=== PATIENT | male | born 1990 | race American Indian/Alaskan Native ===

== ENCOUNTER 2016-09-19 01:30 | Emergency (ER) | payer SELFPAY ==
[2016-09-19] MEDS ORDERED: ZOFRAN IV ONE (01:48)
[2016-09-19] MEDS ORDERED: NACL 0.9% 1000 ML 1,000 ML IV ONE (01:48)
[2016-09-19] MEDS ORDERED: MORPHINE IV ONE (01:48)
[2016-09-19] MEDS ORDERED: ceFAZolin 2 GM in NACL 0.9% 100 ML IV ONE (01:49)
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
[2016-09-19] MEDS ORDERED: ANCEF/NS 1 GM/50 ML 1 GM/50 ML BAG IV ONE (02:05)
[2016-09-19 02:10] LABS: Basophils % (Auto) 0.5 % (0.0-1.8); Eosinophils % (Auto) 1.2 % (0.0-4.3); Hematocrit 42.7 % (35.5-45.6); Hemoglobin 14.9 gm/dl (11.8-15.2); Mean Corpuscular HGB Conc 35 % (32-34); Mean Corpuscular Hemoglobin 35 pg (28-32); Mean Corpuscular Volume 100 fl (84-94); Platelet Count 264 K/mm3 (140-440); Red Blood Count 4.29 M/mm3 (3.65-5.03); Red Cell Distribution Width 12.6 % (13.2-15.2); White Blood Count 6.3 K/mm3 (4.5-11.0)
[2016-09-19] MEDS ORDERED: TRIPLE ANTIBIOTIC TP ONE ×2 (02:21→06:00)
[2016-09-19] MEDS ORDERED: NACL 0.9% 500 ML IR ONE (02:25)
[2016-09-19 02:26] LABS: Anion Gap 21 mmol/L; BUN/Creatinine Ratio 7.14; Blood Urea Nitrogen 10 mg/dL (9-20); Calcium 9.3 mg/dL (8.4-10.2); Carbon Dioxide 22 mmol/L (22-30); Chloride 103.9 mmol/L (98-107); Glucose 90 mg/dL (75-100); Potassium 3.5 mmol/L (3.6-5.0); Sodium 143 mmol/L (137-145)
[2016-09-19 03:49] VITALS: BP 121/71
[2016-09-19] MEDS ORDERED: NACL 0.9% IR ONE (05:05)
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
== END 2016-09-19 03:45 | disposition home or self-care (01) ==
LOC: ED 01:30
DX: S81.801A Unspecified open wound, right lower leg, initial encounter (principal); W34.00XA Accidental discharge from unspecified firearms or gun, initial encounter; Y93.9 Activity, unspecified; Y92.9 Unspecified place or not applicable; Y99.9 Unspecified external cause status
CPT/HCPCS: 12015; 36415; 73590; 80048; 85025; 96361; 96365; 96375; 99284; J0690; J2270; J2405; J7030; A6250

== ENCOUNTER 2016-10-06 13:27 | Emergency (ER) | payer SELFPAY ==
[2016-10-06 14:07] VITALS: BP 124/76
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
== END 2016-10-06 18:13 | disposition home or self-care (01) ==
LOC: ED 13:27
DX: S80.811D Abrasion, right lower leg, subsequent encounter (principal); X58.XXXD Exposure to other specified factors, subsequent encounter
CPT/HCPCS: 99282